=== PATIENT | female | born 1995 | race Caucasian/White ===

== ENCOUNTER 2017-04-05 19:05 | Outpatient (CLI) | payer OTHER ==
[~2017-04-05] VITALS: Ht 167.6 cm; Wt 69.8 kg
[~2017-04-05 19:05] MED LIST: PREN1TAB62 PO
[2017-04-05 21:00] VITALS: BP 109/60; PULSE 111; RESP 18; Ht 167.6 cm; Wt 69.8 kg
[2017-04-05 21:29] LABS: ABNORMAL IP MESSAGE 1; BASOPHILS % 0.1 % (0.0-2.0); EOSINOPHILS % 0.2 % (0.0-7.0); HEMATOCRIT 27.1 % (37.0-47.0); LYMPHOCYTES % 10.5 % (15.0-51.0); MEAN CORPUSCULAR HEMOGLOBIN 29.2 pg (29.0-33.0); MEAN CORPUSCULAR HGB CONC 33.2 g/dl (32.0-37.0); MEAN PLATELET VOLUME 11.4 fl (7.4-10.4); MONOCYTE # 1.9 10^3/ul (0.3-0.9); MONOCYTES % 10.2 % (0.0-11.0); NEUTROPHIL # 14.5 10^3/ul (1.6-7.5); NEUTROPHILS % 77.4 % (39.0-77.0); PLATELET COUNT 222 10^3/UL (140-415); RED BLOOD COUNT 3.08 10^6/ul (4.20-5.40); RED CELL DISTRIBUTION WIDTH 13.6 % (11.5-14.5); WHITE BLOOD COUNT 18.8 10^3/ul (4.8-10.8)
--- NOTE | 2017-04-05 21:42 | PN ---
Triage Information Date/Time 04/05/17, 9:38pm Weeks of Gestation 27 : 2 Para: 1 Diabetes: none Hypertention: none Additional information patient c/o subjective fevers at home; did not take her temperature; she took tylenol at 4pm today; c/o mild dysuria Good FM, no VB, no LOF, no ctx; no pain Objective Vital Signs Date Time Temp Pulse Resp B/P Pulse Ox O2 Delivery O2 Flow Rate FiO2 04/05/17 21:00 98.9 111 18 109/60 Room Air Heart Rate: 150's Contractions: None Exam Abdomen- gravid, n/t SVE- deferred Results/Medications Result Diagram: 04/05/172009 Results 24 hrs Laboratory Tests Test 04/05/17 20:10 White Blood Count 18.8 #H Red Blood Count 3.08 L Hemoglobin 9.0 L Hematocrit 27.1 L Mean Corpuscular Volume 88.0 Mean Corpuscular Hemoglobin 29.2 Mean Corpuscular Hemoglobin Concent 33.2 Red Cell Distribution Width 13.6 # Platelet Count 222 Mean Platelet Volume 11.4 H Neutrophils % 77.4 H Lymphocytes % 10.5 L Monocytes % 10.2 Eosinophils % 0.2 Basophils % 0.1 Nucleated Red Blood Cells % 0.0 Neutrophils # 14.5 H Lymphocytes # 2.0 Monocytes # 1.9 H Eosinophils # 0.0 Basophils # 0.0 Nucleated Red Blood Cells # 0.0 Assessment/Plan CBC and u/a sent to r/o infection patient is afebrile in triage If nml results, will d/c home; patient to buy a thermometer and return if febrile. HAYDEE SINGH MD Apr 05, 2017 21:42
[2017-04-05 21:43] LABS: ADD UMIC YES; UR ASCORBIC ACID NEGATIVE (NEGATIVE); UR BACTERIA FEW /HPF (NONE SEEN); UR BILIRUBIN (Dip) NEGATIVE (NEGATIVE); UR BLOOD (Dip) NEGATIVE (NEGATIVE); UR CLARITY SLIGHTLY CLOUDY (CLEAR); UR COLOR YELLOW (YELLOW); UR GLUCOSE (Dip) NEGATIVE (NEGATIVE); UR KETONES (Dip) NEGATIVE (NEGATIVE); UR LEUKOCYTE ESTERASE (Dip) 3+ Leu/ul (NEGATIVE); UR NITRITE (Dip) NEGATIVE (NEGATIVE); UR RBC 3 /HPF (0-5); UR SPECIFIC GRAVITY (Dip) 1.003 (1.003-1.030); UR SQUAMOUS EPITHELIAL CELL FEW /HPF (FEW); UR TOTAL PROTEIN (Dip) NEGATIVE (NEGATIVE); UR UROBILINOGEN (Dip) NEGATIVE (NEGATIVE)
== END 2017-04-05 22:13 | disposition home or self-care (01) ==
LOC: L-D 19:05 → OBT 19:05
PROVIDERS: ATTEND Obstetrics & Gynecology
DX: O26.892 Other specified pregnancy related conditions, second trimester (principal); Z3A.27 27 weeks gestation of pregnancy; R50.9 Fever, unspecified
CPT/HCPCS: 81001; 85025; Z7500; G0463

== ENCOUNTER 2017-06-08 14:07 | Outpatient (CLI) | payer SELFPAY ==
[~2017-06-08] VITALS: Ht 167.6 cm; Wt 71.8 kg
[2017-06-08 14:13] VITALS: BP 120/60; PULSE 114; Ht 167.6 cm; Wt 71.8 kg
--- NOTE | 2017-06-08 16:10 | RADRPT ---
PROCEDURE: US OB biophysical profile. CLINICAL INDICATION: decreased movements, poor growth TECHNIQUE: Multiple sonographic images of the pelvis were obtained. The images were reviewed on a PACS workstation. COMPARISON: No prior studies are available for comparison. FINDINGS: There is a single viable intrauterine gestation. Cardiac activity is present with 156 beats per min [place]. There is a vertex presentation. The placenta is posterior fundal. There is no evidence of placental abruption. There is a normal amount of amniotic fluid with an CYNDIE = 8.4 cm. Biophysical profile: movement 2/2 tone 2/2. breathing 2/2 CYNDIE 2/2 Total 05/15 RPTAT: AA . IMPRESSION: Normal biophysical profile. . .Houston Triplett MD, Date Time Electronically viewed and signed by .Houston Triplett MD, MD on 06/08/2017 16:09 .S/
--- NOTE | 2017-06-08 16:11 | RADRPT ---
PROCEDURE: US OB. CLINICAL INDICATION: Size and dates TECHNIQUE: Multiple sonographic images of the pelvis and gravid uterus were obtained. The images were reviewed on a PACS workstation. COMPARISON: No prior studies are available for comparison. FINDINGS: There is a single viable intrauterine gestation. Cardiac activity is present with 152 beats per min [place]. There is a vertex presentation. The placenta is posterior fundal. There is no evidence of placental abruption. There is a normal amount of amniotic fluid with an CYNDIE = 8.4 cm. Measurements were made in order to determine age. The results are as follows: BPD =8.5 cm HC =30.8 cm AC =33 cm FL =6.8 cm Estimated gestational age of approximately 35 weeks and 2 days based on ultrasound measurements. Clinical age: 36 weeks and 1 day. The estimated date of delivery is 07/11/17, based on ultrasound measurements. The EFW = 2795 g, 44.6%, based on LMP age. RPTAT: AA IMPRESSION: Single viable intrauterine gestation of approximately 35 weeks and 2 days based on ultrasound measu rements. .Houston Triplett MD, MD Date Time Electronically viewed and signed by .Houston Triplett MD, MD on 06/08/2017 16:11 .S/
--- NOTE | 2017-06-08 18:06 | PN ---
Triage Information Date/Time 06/08/2017 Reason for visit: IUGR (sent from clinic to R/O IUGR ) Weeks of Gestation 36.1 /Para Diabetes: none Hypertention: none Objective Vital Signs Date Time Temp Pulse Resp B/P Pulse Ox O2 Delivery O2 Flow Rate FiO2 06/08/17 14:13 98.2 114 120/60 Heart Rate: 140's Heart Rate Comments reactive Contractions: None Exam Not applicable Results/Medications Imaging Results Measurements were made in order to determine age. The results are as follows: BPD = 8.5 cm HC = 30.8 cm AC = 33 cm FL = 6.8 cm Estimated gestational age of approximately 35 weeks and 2 days based on ultrasound measurements. Clinical age: 36 weeks and 1 day. The estimated date of delivery is 07/11/17, based on ultrasound measurements. The EFW = 2795 g, 44.6%, based on LMP age. Biophysical profile: movement 2/2 tone 2/2. breathing 2/2 CYNDIE 2/2 Total / Normal biophysical profile. . Disposition: Discharge Assessment/Plan Follow-up in clinic as outpatient IUGR ruled out RUBEN SCHAEFER MD Jun 08, 2017 18:06
--- NOTE | 2017-06-08 18:53 | TRIAGE ---
OB Triage Datetime Report Generated by CPN: 06/08/2017 18:53 Datetime: 06/08/2017 17:54 Stage of : OB Triage Datetime: 06/08/2017 17:12 Labor Evaluation Frequency: 0 Monitor Mode: External Pattern: Normal: <= 5 Contractions in 10 Minutes Resting Tone [place]: Relaxed Heart Rate FHR Baseline Rate: 135 Monitor Mode: External US Variability: Moderate 6-25 bpm Accelerations: 10X10 Decelerations: None Category: Category I Pain Assessment Pain Scale: 0 Pain Presence: None/Denies Pain Type: N/A Pain Goal: 3 Pain Relief Measures: Comfort Measures Datetime: 06/08/2017 16:13 Labor Evaluation Frequency: 0 Monitor Mode: External Pattern: Normal: <= 5 Contractions in 10 Minutes Resting Tone [place]: Relaxed Heart Rate FHR Baseline Rate: 145 Monitor Mode: External US Variability: Moderate 6-25 bpm Accelerations: 10X10 Decelerations: None Category: Category I Pain Assessment Pain Scale: 0 Pain Presence: None/Denies Pain Goal: 3 Pain Relief Measures: Comfort Measures Datetime: 06/08/2017 15:13 Labor Evaluation Frequency: 0 Monitor Mode: External Pattern: Normal: <= 5 Contractions in 10 Minutes Resting Tone [place]: Relaxed Heart Rate FHR Baseline Rate: 145 Monitor Mode: External US Variability: Moderate 6-25 bpm Accelerations: 10X10 Decelerations: None Category: Category I Pain Assessment Pain Scale: 0 Pain Presence: None/Denies Pain Type: N/A Pain Goal: 3 Pain Relief Measures: Comfort Measures Datetime: 06/08/2017 14:15 Stage of : OB Triage Assessment Type: Triage Maternal Assessment Level of Consciousness: Fully Conscious DTR's/Clonus: DTRs 2+; No Clonus Headache: Denies Blurred Vision: No Respiratory Effort: Unlabored; Regular Rhythm; Equal Expansion Breath Sounds, Left: Clear and Equal Breath Sounds, Right: Clear and Equal Nausea/Vomiting: Denies RUQ Epigastric Pain: Denies Facial Edema: None Temperature Route: Axillary Fall Risk Assessment History of Falling: (0) No Secondary Diagnosis: (0) No Ambulatory Aid: (0) Bedrest/Nurse Assist IV Therapy: (0) No Gait: (0) Normal/Bedrest/Immobile Mental Status: (0) Oriented to Own Ability Fall Score: 0 Fall Risk Score Definition: No Risk: No action required Labor Evaluation Frequency: 0 Monitor Mode: External Pattern: Normal: <= 5 Contractions in 10 Minutes Resting Tone [place]: Relaxed Heart Rate FHR Baseline Rate: 150 Monitor Mode: External US Variability: Moderate 6-25 bpm Accelerations: 10X10 Decelerations: None Category: Category I Pain Assessment Pain Scale: 0 Pain Presence: None/Denies Pain Type: N/A Pain Goal: 3 Pain Relief Measures: Comfort Measures Datetime: 06/08/2017 14:14 Time of Arrival: 06/08/2017 14:03 EGA: 36.1 Arrived By: Ambulatory Arrived From: Dr. Gutierrez Chief Complaint: SENT IN FOR EFW/BPP FOR POOR GROWTH DENIES LEAKING, BLEEDING OR UC'S Movement: Present Contractions: Denies/Absent Rupture of Membranes: Denies Vaginal Bleeding: None Vaginal Discharge: Denies Recent Sexual Intercouse: Denies Abdominal Trauma: Not Applicable Patient Complaints: None Time Provider Notified: 06/08/2017 17:54 Provider Notified: CELINA Initial Plan: MONITOR, EFW, BPP Datetime: 04/05/2017 22:00 Stage of : OB Triage Labor Evaluation Frequency: 0 Monitor Mode: External Resting Tone [place]: Relaxed Heart Rate FHR Baseline Rate: 135 Monitor Mode: External US Variability: Moderate 6-25 bpm Accelerations: 15X15 Decelerations: None Category: Category I Pain Presence: None/Denies Pain Type: N/A Datetime: 04/05/2017 21:03 Stage of : OB Triage Labor Evaluation Frequency: 0 Monitor Mode: External Resting Tone [place]: Relaxed Heart Rate FHR Baseline Rate: 150 Monitor Mode: External US Variability: Moderate 6-25 bpm Accelerations: 15X15 Decelerations: None Category: Category I Datetime: 04/05/2017 20:24 Assessment Type: Triage Maternal Assessment Level of Consciousness: Fully Conscious DTR's/Clonus: DTRs 2+; No Clonus Headache: Denies Blurred Vision: No Respiratory Effort: Unlabored Breath Sounds, Left: Clear and Equal Breath Sounds, Right: Clear and Equal Nausea/Vomiting: Hx of Nausea/Vomiting RUQ Epigastric Pain: Denies Lower Extremities Edema: None Degree: None Upper Extremities Edema: None Degree: None Facial Edema: None Fall Risk Assessment History of Falling: (0) No Secondary Diagnosis: (0) No Ambulatory Aid: (0) Bedrest/Nurse Assist IV Therapy: (0) No Gait: (0) Normal/Bedrest/Immobile Mental Status: (0) Oriented to Own Ability Fall Score: 0 Fall Risk Score Definition: No Risk: No action required Datetime: 04/05/2017 20:22 Time of Arrival: 04/05/2017 18:59 EGA: 27.0 Arrived By: Ambulatory Arrived From: Home Chief Complaint: fever and chills Movement: Present Contractions: Denies/Absent Rupture of Membranes: Denies Vaginal Bleeding: None Vaginal Discharge: Denies Recent Sexual Intercouse: Denies Abdominal Trauma: Not Applicable Patient Complaints: Fever Additional Patient Complaints: Pt states she did not take her temprature, but has been feeling lik e she was having fever and chills since last Sunday Initial Plan: VS, NST, DC TO ER FOR F/U OF SX Datetime: 04/05/2017 20:16 Stage of : OB Triage Monitor Mode: External Contraction Comments: APPLIED Monitor Mode: External US Comments: APPLIED Datetime: 04/05/2017 20:15 Stage of : OB Triage
== END 2017-06-08 18:09 | disposition home or self-care (01) ==
LOC: OBT 14:07 → L-D 14:07 → OBT 18:09
PROVIDERS: ATTEND Obstetrics & Gynecology
DX: O36.5930 Maternal care for other known or suspected poor fetal growth, third trimester, not applicable or unspecified (principal); Z3A.36 36 weeks gestation of pregnancy
CPT/HCPCS: 76815; 76818; G0463

== ENCOUNTER 2017-07-01 22:14 | Inpatient (IN) | payer OTHER ==
[~2017-07-01] VITALS: Ht 167.6 cm; Wt 73.6 kg
[2017-07-01] MEDS ORDERED: LACTATED RINGER'S 1,000 ML IV SCH (22:56)
[2017-07-01] MEDS ORDERED: METHYLERGONOVINE 0.2 MG INJ IM PRN (23:00)
[2017-07-01] MEDS ORDERED: LACTATED RINGER'S 1,000 ML IV PRN (23:00)
[2017-07-01] MEDS ORDERED: CARBOPROST 250 MCG INJ IM PRN (23:00)
[2017-07-01] MEDS ORDERED: BUTORPHANOL 2 MG INJ IV PRN ×2 (23:00)
[2017-07-01] MEDS ORDERED: MISOPROSTOL 200 MCG TAB PR PRN (23:00)
[2017-07-01] MEDS ORDERED: OXYTOCIN 30 UNITS/LR 500 ML IV SCH ×2 (23:00)
[2017-07-01] MEDS ORDERED: OXYTOCIN 30 UNITS/LR 500 ML IV PRN (23:00)
[2017-07-01] MEDS ORDERED: AMPICILLIN 2 GM/NS (PMX) 100 ML IV ONE (23:00)
[2017-07-01] MEDS ORDERED: LIDOCAINE 1% (MPF) 30 ML INJ INJ PRN (23:00)
[2017-07-01] MEDS ORDERED: IBUPROFEN 600 MG TAB PO PRN (23:00)
[2017-07-01 23:12] VITALS: Ht 167.6 cm; Wt 73.6 kg
[2017-07-01 23:13] VITALS: BP 110/61; PULSE 85; RESP 18
--- NOTE | 2017-07-01 23:15 | TRIAGE ---
OB Triage Datetime Report Generated by CPN: 07/01/2017 23:14 Datetime: 07/01/2017 23:06 Stage of : OB Triage Labor Evaluation Frequency: 2-3 Monitor Mode: External Duration (sec)2399: 60-70 Pattern: Normal: <= 5 Contractions in 10 Minutes Resting Tone [place]: Relaxed Heart Rate FHR Baseline Rate: 135 Monitor Mode: External US Variability: Moderate 6-25 bpm Accelerations: 15X15 Decelerations: None Category: Category I Pain Assessment Pain Scale: 6 Pain Presence: Intermittent Pain Type: Contraction Pain Location: Abdomen Pain Relief Measures: Comfort Measures Datetime: 07/01/2017 22:49 Vaginal Exam Dilatation (cms): 5.0 Effacement (%): 90 Station: -2 Exam By: ANNA Vaginal Bleeding: None Cervix, Consistency: Soft Cervix, Position: Posterior Datetime: 07/01/2017 22:30 Maternal Assessment Level of Consciousness: Fully Conscious DTR's/Clonus: DTRs 2+; No Clonus Headache: Denies Blurred Vision: No Respiratory Effort: Unlabored; Regular Rhythm; Equal Expansion Breath Sounds, Left: Clear and Equal Breath Sounds, Right: Clear and Equal Nausea/Vomiting: Denies RUQ Epigastric Pain: Denies Lower Extremities Edema: None Degree: None Upper Extremities Edema: None Degree: None Facial Edema: None Fall Risk Assessment History of Falling: (0) No Secondary Diagnosis: (0) No Ambulatory Aid: (0) Bedrest/Nurse Assist IV Therapy: (0) No Gait: (0) Normal/Bedrest/Immobile Mental Status: (0) Oriented to Own Ability Fall Score: 0 Fall Risk Score Definition: No Risk: No action required Datetime: 07/01/2017 22:09 Time of Arrival: 07/01/2017 22:09 EGA: 39.3 Arrived By: Wheelchair Arrived From: Emergency Dept Chief Complaint: Contractions Movement: Present Contractions: Regular Time Contractions Began: 07/01/2017 20:00 Rupture of Membranes: Denies Vaginal Bleeding: None Vaginal Discharge: Present Recent Sexual Intercouse: Denies Abdominal Trauma: Not Applicable Patient Complaints: Contractions Time Provider Notified: 07/01/2017 22:50 Provider Notified: Reiche Initial Plan: VS, EFM, SVE Datetime: 06/08/2017 14:15 Fall Score: 0 Fall Risk Score Definition: No Risk: No action required Datetime: 06/08/2017 14:14 EGA: 36.1 Datetime: 04/05/2017 20:24 Fall Score: 0 Fall Risk Score Definition: No Risk: No action required Datetime: 04/05/2017 20:22 EGA: 27.0
[2017-07-01 23:57] LABS: BASOPHIL # 0.1 10^3/ul (0.0-0.1); BASOPHILS % 0.3 % (0.0-2.0); EOSINOPHILS # 0.1 10^3/ul (0.0-0.5); EOSINOPHILS % 0.4 % (0.0-7.0); HEMATOCRIT 31.2 % (37.0-47.0); HEMOGLOBIN 9.8 g/dl (12.0-16.0); LYMPHOCYTES # 2.8 10^3/ul (0.8-2.9); LYMPHOCYTES % 16.9 % (15.0-51.0); MEAN CORPUSCULAR HEMOGLOBIN 25.5 pg (29.0-33.0); MEAN CORPUSCULAR HGB CONC 31.4 g/dl (32.0-37.0); MEAN CORPUSCULAR VOLUME 81.3 fl (82.0-101.0); NEUTROPHIL # 12.5 10^3/ul (1.6-7.5); NEUTROPHILS % 75.7 % (39.0-77.0); PLATELET COUNT 225 10^3/UL (140-415); RED BLOOD COUNT 3.84 10^6/ul (4.20-5.40); RED CELL DISTRIBUTION WIDTH 15.4 % (11.5-14.5); WHITE BLOOD COUNT 16.6 10^3/ul (4.8-10.8)
[2017-07-02 00:19] LABS: INR 0.95; PARTIAL THROMBOPLASTIN TIME 26.3 Sec (25.0-35.0); PROTIME 12.7 Sec (12.2-14.2)
[2017-07-02] MEDS ORDERED: OXYTOCIN 30 UNITS/LR 500 ML IV SCH (00:34)
[2017-07-02] MEDS: LACTATED RINGER'S 1,000 ML IV* SCH (00:34)
--- NOTE | 2017-07-02 00:38 | LDN ---
Date/Time of Note Date/Time of Note DATE: 07/02/17 TIME: 00:36 Delivery Summary of a viable baby girl weighing 3325 grams, or 7# 5oz, 19.25" long, and with Apgars of 9/9. Weeks of Gestation 39w 4d Placenta Delivered: Spontaneously Meconium: none Episiotomy: No Perineal laceration: 0 Anesthesia type: None Estimated blood loss: 150 Sponge & Needle done & correct: Yes All needle counts correct: Yes Any foreign bodies felt in the: No (vagina) Problems: Delivery Information Sex Sex: female Apgars 1 Minute: 9 5 Minute: 9 Suctioning Nose & mouth suctioned at marium: Yes Delee suction performed: No Umbilical Cord Umbilical cord with: 3 Vessels Cord presentations: no nuchal cord Cord Blood was obtained: Yes Mother & Baby Disposition Disposition Mom & Baby to Maternity; Good: Yes Baby to NICU: No TIFFANIE DAVE MD Jul 02, 2017 00:38
--- NOTE | 2017-07-02 00:44 | HP ---
Date/Time of Note Date/Time of Note DATE: 07/02/17 TIME: 00:41 OB - History Hx of Present Free Text/Dictation 22 y.o. with an IUP at 39w 4d came in active labor at 5 cm and rapidly progressed. Estimated Due Date: Jul 05, 2017 : 2 Para: 1 Care: Good Care Ultrasounds: Normal mid trimester US Obstetrical Complications: None Medical Complications: None Other Concerns: PMHx: none. PSHx: none. NKDA. Past Family/Social History * Past Medical, Surgical, Family and Obstetric Histories reviewed from chart. Blood Type: O+ Rubella: immune RPR/VDRL: Negative GBS Status: Unknown HBsAG: Negative OB Admission Exam Vital Signs Vital Signs Vital Signs Date Time Temp Pulse Resp B/P Pulse Ox O2 Delivery O2 Flow Rate FiO2 07/01/17 23:13 97.9 85 18 110/61 Physical Exam HEENT: WNL Heart: Rhythm Normal Lungs: Clear Abdomen: WNL Extremities: Normal Reflexes: Normal Cervical Dilatation: 2cm Effacement: 100% Station: -2 Membranes: Intact Amniotic Fluid: Clear Heart Rate: 140's Accelerations: Accelerations Present Decelerations: No Decelerations Varibility: Moderate Contractions on Admission: < 5 Minutes Apart Intensity: Moderate Last 72 hours Lab Results CBC & BMP 07/01/17 23:35 OB Assessment/Plan Reason for admission: active labor Plan: Expectant Management TIFFANIE DAVE MD Jul 02, 2017 00:44
[2017-07-02] MEDS ORDERED: LANOLIN 7 GM TUBE TOP PRN (01:00)
[2017-07-02] MEDS ORDERED: HYDROCODONE/APAP (5/325) TAB PO PRN (01:00)
[2017-07-02] MEDS ORDERED: METHYLERGONOVINE 0.2 MG INJ IM PRN (01:00)
[2017-07-02] MEDS ORDERED: OXYTOCIN 30 UNITS/LR 500 ML IV PRN (01:00)
[2017-07-02] MEDS ORDERED: CARBOPROST 250 MCG INJ IM PRN (01:00)
[2017-07-02] MEDS ORDERED: MISOPROSTOL 200 MCG TAB PR PRN (01:00)
[2017-07-02 02:00] VITALS: BP 107/53; PULSE 82; RESP 18
[2017-07-02] MEDS ORDERED: AMPICILLIN 1 GM/NS (PMX) 50 ML IV SCH (03:00)
[2017-07-02 04:00] VITALS: BP 113/52; PULSE 80; RESP 18
[2017-07-02] MEDS: IBUPROFEN 600 MG TAB PO SCH ×3 (05:37→17:27)
[2017-07-02 08:10] VITALS: BP 95/52; PULSE 86; RESP 18
[2017-07-02 12:00] VITALS: BP 92/60; PULSE 78; RESP 20
[2017-07-02 16:00] VITALS: BP 92/50; PULSE 72; RESP 20
[2017-07-02 19:45] VITALS: BP 112/64; PULSE 73; RESP 18
[2017-07-03] MEDS: LACTATED RINGER'S 1,000 ML IV* SCH ×3 (00:34→16:34)
[2017-07-03 04:00] VITALS: BP 99/54; PULSE 89; RESP 18
[2017-07-03] MEDS: IBUPROFEN 600 MG TAB PO SCH ×5 (05:32→23:56)
[2017-07-03 08:00] VITALS: BP 97/56; PULSE 87; RESP 20
[2017-07-03 10:23] LABS: ABNORMAL IP MESSAGE 1; BASOPHIL # 0.1 10^3/ul (0.0-0.1); BASOPHILS % 0.7 % (0.0-2.0); EOSINOPHILS # 0.2 10^3/ul (0.0-0.5); EOSINOPHILS % 2.2 % (0.0-7.0); HEMATOCRIT 26.4 % (37.0-47.0); HEMOGLOBIN 8.1 g/dl (12.0-16.0); LYMPHOCYTES # 2.9 10^3/ul (0.8-2.9); LYMPHOCYTES % 31.7 % (15.0-51.0); MEAN CORPUSCULAR HEMOGLOBIN 25.8 pg (29.0-33.0); MEAN CORPUSCULAR HGB CONC 30.7 g/dl (32.0-37.0); MEAN CORPUSCULAR VOLUME 84.1 fl (82.0-101.0); MEAN PLATELET VOLUME 13.1 fl (7.4-10.4); MONOCYTE # 0.6 10^3/ul (0.3-0.9); MONOCYTES % 6.4 % (0.0-11.0); NEUTROPHIL # 5.4 10^3/ul (1.6-7.5); NEUTROPHILS % 58.5 % (39.0-77.0); PLATELET COUNT 191 10^3/UL (140-415); RED BLOOD COUNT 3.14 10^6/ul (4.20-5.40); RED CELL DISTRIBUTION WIDTH 15.7 % (11.5-14.5); WHITE BLOOD COUNT 9.2 10^3/ul (4.8-10.8)
[2017-07-03 15:52] VITALS: BP 91/52; PULSE 64; RESP 18
[2017-07-03 20:50] VITALS: BP 118/61; PULSE 86; RESP 18
[2017-07-04] MEDS: LACTATED RINGER'S 1,000 ML IV* SCH (00:34)
[2017-07-04 04:00] VITALS: BP 107/60; PULSE 71; RESP 18
[2017-07-04] MEDS: IBUPROFEN 600 MG TAB PO SCH ×3 (05:36→17:24)
[2017-07-04 07:40] VITALS: BP 105/62; PULSE 74; RESP 16
[2017-07-04] MEDS ORDERED: INFLUENZA VIRUS VACCINE 0.5 ML SYG IM* ONE (09:00)
[2017-07-04] MEDS ORDERED: DIPHTH/TET/ACEL PERTUSS (ADULT) 0.5 ML VIAL IM* ONE (09:00)
[2017-07-04] MEDS ORDERED: IBUP-1542 PO ×2 (14:28→14:30)
--- NOTE | 2017-07-04 14:28 | PD.PPDC ---
AUDIOLOGY DOCTOR Discharge Instruction Provider Information Physician Information 22 y/o female had vaginal delivery Diagnosis Final Diagnosis: S/P vaginal delivery Condition Patient Condition: Good Diet Diet: Resume Regular Diet Activity/Restrictions Activity: Normal Activity May Shower Restrictions: Nothing in the Vagina Return to Work or School: Aug 20, 2017 Follow-up Follow-up with Physician: 4, Week/Weeks (in clinic) Return to clinic for OB Instructions: Breast Tenderness Depression Comment: pelvic rest X 6 weeks RUBEN SCHAEFER MD Jul 04, 2017 14:28
[2017-07-04 15:23] VITALS: BP 101/59; PULSE 72; RESP 16
== END 2017-07-04 18:35 | disposition home or self-care (01) | DRG 775 ==
LOC: OBT 22:14 → L-D 22:14 → OBT 22:50 → PP1 07-02 02:21
PROVIDERS: ADMIT Obstetrics & Gynecology; ATTEND Obstetrics & Gynecology
PROC: 10E0XZZ Delivery of Products of Conception, External Approach (ICD-10-PCS; principal; 2017-07-02)
DX: O80 Encounter for full-term uncomplicated delivery (principal); Z37.0 Single live birth; Z3A.39 39 weeks gestation of pregnancy
CPT/HCPCS: 85025; 85610; 85730; 86592; 86900; 86901; 87340; 90686; 90715; G0463; J0290; J0595; J2590; J7120